=== PATIENT | male | born 1940 | race Caucasian/White ===

== ENCOUNTER 2016-07-21 17:32 | Emergency (ER) | payer MEDICARE ==
[2016-07-21 17:54] VITALS: BP 121/62; PULSE 78; RESP 18; TEMP 98.8
--- NOTE | 2016-07-21 18:36 | ED ---
Extremity Problem HPI - General Chief complaint: Extremity Problem,Nontraumatic Stated complaint: POSS BLOOD CLOT RT FOOT Source: patient Mode of arrival: wheelchair Limitations: no limitations - History of Present Illness Initial comments: Patient is a pleasant 75-year-old male who presents for evaluation for right ankle pain. Past medical history as below. Patient has a known history of gout. Stated Friday evening/Friday morning he developed pain to the medial aspect of his right ankle. He took 2 doses of colchicine with no relief. Because he did not get better he came here for evaluation. Walking on it hurts it more. He has no history of trauma to the ankle. Denies any twisting motion to the right foot. No history of blood clots. No history of cellulitis. Did have a right knee replacement in April 2016 but is done well since the operation. States that he has a known history of gout but stated that after 1- 2 doses of colchicine his pain typically resolves. He denies any other systemic signs of illness. Denies fever, chills, headache, changes in vision, URI symptoms, shortness of breath, cough, chest pain, nausea, vomiting, diarrhea , pain or burning with urination. - Related Data Home Medications Medication Instructions Recorded Confirmed Aspirin EC [Ecotrin Low Dose] 81 mg PO DAILY 07/21/16 07/21/16 Calcium Carbonate/Vitamin D3 1 tab PO DAILY 07/21/16 07/21/16 [Calcium 500-Vit D3 600 Tablet] Colchicine [Colcrys] 0.6 mg PO DAILY PRN 07/21/16 07/21/16 Cyanocobalamin (Vitamin B-12) 1,000 mcg PO DAILY 07/21/16 07/21/16 [Vitamin B-12] FLUoxetine HCL [PROzac] 40 mg PO DAILY 07/21/16 07/21/16 Gabapentin 600 mg PO TID 07/21/16 07/21/16 Lactulose 10 gm PO BID PRN 07/21/16 07/21/16 Lansoprazole [Prevacid] 30 mg PO DAILY PRN 07/21/16 07/21/16 Levofloxacin [Levaquin] 750 mg PO DAILY 07/21/16 07/21/16 Levothyroxine Sodium [Synthroid] 112 mcg PO DAILY 07/21/16 07/21/16 Maxvision 1 tab PO DAILY 07/21/16 07/21/16 Metaxalone [Skelaxin] 400 - 800 mg PO TID PRN 07/21/16 07/21/16 Methylphenidate HCl [Ritalin] 20 mg PO BID@0800,1200 07/21/16 07/21/16 Multivit-Min/FA/Lycopene/Lut 1 tab PO DAILY 07/21/16 07/21/16 [Centrum Silver Tablet] Nortriptyline [Pamelor] 25 mg PO HS 07/21/16 07/21/16 Simvastatin [Zocor] 10 mg PO HS 07/21/16 07/21/16 Visaril 0.25mg 0.5 mg PO QID 07/21/16 07/21/16 amLODIPine BESYLATE/BENAZEPRIL 1 cap PO DAILY 07/21/16 07/21/16 [Lotrel 10-40 mg Capsule] clonazePAM [KlonoPIN] 1 mg PO DAILY@1800 07/21/16 07/21/16 clonazePAM [KlonoPIN] 1 mg PO TID 07/21/16 07/21/16 hydrOXYzine PAMOATE [Vistaril] 50 mg PO QID PRN 07/21/16 07/21/16 rOPINIRole HCL [Requip] 1 mg PO QID PRN 07/21/16 07/21/16 Allergies Allergy/AdvReac Type Severity Reaction Status Date / Time No Known Allergies Allergy Unverified 07/21/16 18:07 Review of Systems ROS Statement: Those systems with pertinent positive or pertinent negative responses have been documented in the HPI. ROS Other: All systems not noted in ROS Statement are negative. Past Medical History Past Medical History: Hyperlipidemia, Hypertension, Thyroid Disorder Additional Past Medical History / Comment(s): restless leg, IBS, gout History of Any Multi-Drug Resistant Organisms: None Reported Past Surgical History: Hernia Repair, Joint Replacement Past Psychological History: Anxiety Smoking Status: Never smoker Past Alcohol Use History: None Reported Past Drug Use History: None Reported General Exam Limitations: no limitations General appearance: alert, in no apparent distress, other (No acute distress) Head exam: Present: atraumatic, normocephalic, normal inspection Eye exam: Present: normal appearance, PERRL, EOMI. Absent: scleral icterus, conjunctival injection, periorbital swelling ENT exam: Present: normal exam, mucous membranes moist Neck exam: Present: normal inspection. Absent: tenderness, meningismus, lymphadenopathy Respiratory exam: Present: normal lung sounds bilaterally. Absent: respiratory distress, wheezes, rales, rhonchi, stridor Cardiovascular Exam: Present: regular rate, normal rhythm, normal heart sounds. Absent: systolic murmur, diastolic murmur, rubs, gallop, clicks GI/Abdominal exam: Present: soft, normal bowel sounds. Absent: distended, tenderness, guarding, rebound, rigid Extremities exam: Present: full ROM, normal capillary refill, joint swelling, other (There is a mild degree of swelling to the medial aspect of the right ankle. There is an area that is firm to the touch and warm to the touch. Full range of motion of the right ankle. Good midfoot rotation. Distal pulses intact. There is some mild degree of pain with palpation of the distal gastroc. ). Absent: tenderness, pedal edema, calf tenderness Back exam: Present: normal inspection Neurological exam: Present: alert, oriented X3, CN II-XII intact Psychiatric exam: Present: normal affect, normal mood Skin exam: Present: warm, dry, intact, normal color. Absent: rash Course Vital Signs 07/21/16 17:47 Temperature 98.8 F Pulse Rate 78 Respiratory 18 Rate Blood Pressure 121/62 O2 Sat by Pulse 95 Oximetry Medical Decision Making - Medical Decision Making Patient is a pleasant 75-year-old male presents for evaluation for redness and swelling to the medial aspect of his right ankle. He does have some tenderness to palpation of the posterior right calf. We'll order plain film of the right ankle and ultrasound of the right lower extremity. 184: Venous duplex negative for acute DVT. 193: Reviewed plain films of the right ankle. No acute fracture dislocation. There does appear to be some inflammatory changes to the medial aspect of his right ankle. Reevaluated the patient. His pain is a little bit improved. Believe his symptoms are most consistent with gout at this time. He has a known history of it. He has mono joint involvement. Encourage close follow-up with his primary care physician. May need repeat venous duplex of his right lower extremity for swelling persist to help rule out DVT. Patient voiced understanding. He will call his primary care physician tomorrow. Will continue to take colchicine as prescribed. Can also take a couple tabs of NSAIDs in the short-term for his pain. He has taken Motrin and tolerated in the past. Discussed signs and symptoms on when to return to the emergency department for further evaluation. He is comfortable discharge home and will follow-up. Disposition Clinical Impression: Gout attack Disposition: HOME SELF-CARE Condition: Fair Instructions: Gout (ED) Referrals: Jonathan Mcneal MD [Primary Care Provider] - 1-2 days
--- NOTE | 2016-07-21 19:05 | XR ---
EXAMINATION TYPE: XR ankle complete RT DATE OF EXAM: 07/21/2016 6:38 PM CLINICAL HISTORY: Pain, redness, and swelling. History of gout TECHNIQUE: Frontal, lateral and oblique images of the right ankle are obtained. COMPARISON: None. FINDINGS: There is no acute fracture/dislocation evident in the right ankle. The ankle mortise appe ars within normal limits. Moderate diffuse subcutaneous edema is present with more focal soft tissue swelling medially and posteriorly. Some calcifications near distal Achilles tendon and proximal plant ar fascia are present. IMPRESSION: There is no acute fracture or dislocation in the right ankle.
--- NOTE | 2016-07-21 19:16 | US ---
EXAMINATION TYPE: US venous doppler duplex LE RT DATE OF EXAM: 07/21/2016 6:49 PM COMPARISON: NONE CLINICAL HISTORY: Pain. right ankle pain, swelling, and redness SIDE PERFORMED: Right VESSELS IMAGED: External Iliac Vein (EIV) Common Femoral Vein Deep Femoral Vein Greater Saphenous Vein * Femoral Vein Popliteal Vein Proximal Calf Veins (* superficial vessels) TECHNOLOGIST IMPRESSION: wnl Right Leg: Negative for DVT Satisfactory color flow, phasicity, and compressibility is seen in the right lower extremity at the a yunior levels. IMPRESSION: No ultrasound evidence for acute DVT in the right lower extremity.
== END 2016-07-21 19:59 | disposition home or self-care (01) ==
LOC: EC 17:32
DX: M10.9 Gout, unspecified (principal); E78.5 Hyperlipidemia, unspecified; I10 Essential (primary) hypertension; E07.9 Disorder of thyroid, unspecified; K58.9 Irritable bowel syndrome, unspecified; G25.81 Restless legs syndrome; F41.9 Anxiety disorder, unspecified; Z79.899 Other long term (current) drug therapy; Z79.82 Long term (current) use of aspirin; Z96.651 Presence of right artificial knee joint
CPT/HCPCS: 99284

== ENCOUNTER 2019-07-10 13:41 | Emergency (ER) | payer MEDICARE ==
[2019-07-10 13:52] VITALS: BP 115/55; PULSE 83; RESP 20; TEMP 97.9
--- NOTE | 2019-07-10 15:15 | XR ---
EXAMINATION TYPE: XR tibia fibula LT DATE OF EXAM: 07/10/2019 COMPARISON: NONE HISTORY: Leg pain TECHNIQUE: 4 views FINDINGS: There is left knee prosthesis. There is oblique fracture distal shaft of the fibula. Ankle mortise is not widened. The tibia appears intact. IMPRESSION: Acute nondisplaced fracture distal fibula.
--- NOTE | 2019-07-10 15:16 | XR ---
EXAMINATION TYPE: XR foot complete LT DATE OF EXAM: 07/10/2019 COMPARISON: NONE HISTORY: Foot pain TECHNIQUE: 3 views FINDINGS: Metatarsals appear intact. There is minor spurring at the MP joints. There is spurring of t he anterior malleolus at the ankle. There is a small plantar and Achilles calcaneal spur. There is mild soft tissue swelling of the forefoot. IMPRESSION: No foot fracture seen. Mild soft tissue swelling. Degenerative mild changes. Distal fibul a and nondisplaced fracture noted.
--- NOTE | 2019-07-10 15:18 | XR ---
EXAMINATION TYPE: XR ankle complete LT DATE OF EXAM: 07/10/2019 COMPARISON: NONE HISTORY: Pain TECHNIQUE: 3 views FINDINGS: There is oblique fracture distal shaft of the fibula. Ankle mortise is anatomic. There is m ild soft tissue swelling over the lateral malleolus. There is some spurring of the anterior and poste rior malleolus. Subtalar joint is intact. IMPRESSION: Acute oblique fracture distal shaft of the fibula without significant displacement.
--- NOTE | 2019-07-10 15:23 | ED ---
Lower Extremity Injury HPI - General Source: patient Mode of arrival: wheelchair Limitations: no limitations <Shayy Hernandez - Last Filed: 07/10/19 15:57> <Ssuan Mcgrathah Cortez - Last Filed: 07/12/19 00:24> - General Chief Complaint: Extremity Injury, Lower Stated Complaint: Ankle injury Time Seen by Provider: 07/10/19 13:54 - History of Present Illness Initial Comments: Patient is a 78-year-old male presenting to the emergency Department with complaints of left ankle pain after falling on it 2 days ago. Patient states he slipped on the last step and rolled his left ankle. Patient states he thought it was just a sprain so he's been trying to ice it and elevate it. He is able to give few steps on it while using his cane. Patient states he woke up this morning and noticed a few blisters on his ankle and was concerned. He denies any previous surgeries on this ankle. He denies any other complaints from falling other than a simple abrasion on his right hand. He denies hitting his head, no LOC. He has no other complaints at this time. Upon arrival to the ER, his vital signs are stable. (Shayy Hernandez) - Related Data Home Medications Medication Instructions Recorded Confirmed Aspirin EC [Ecotrin Low Dose] 81 mg PO DAILY 07/21/16 04/14/17 Colchicine [Colcrys] 0.6 mg PO DAILY PRN 07/21/16 04/14/17 Cyanocobalamin (Vitamin B-12) 1,000 mcg PO DAILY 07/21/16 04/14/17 [Vitamin B-12] FLUoxetine HCL [PROzac] 40 mg PO DAILY 07/21/16 04/14/17 Gabapentin 600 mg PO TID 07/21/16 04/14/17 Lactulose 10 gm PO BID PRN 07/21/16 04/14/17 Lansoprazole [Prevacid] 30 mg PO DAILY PRN 07/21/16 04/14/17 Levothyroxine Sodium [Synthroid] 112 mcg PO DAILY 07/21/16 04/14/17 Maxvision 1 tab PO DAILY 07/21/16 04/14/17 Metaxalone [Skelaxin] 400 - 800 mg PO TID PRN 07/21/16 04/14/17 Methylphenidate HCl [Ritalin] 20 mg PO BID 07/21/16 04/14/17 Multivit-Min/FA/Lycopen/Lutein 1 tab PO DAILY 07/21/16 04/14/17 [Centrum Silver Tablet] Nortriptyline [Pamelor] 25 mg PO HS 07/21/16 04/14/17 Simvastatin [Zocor] 10 mg PO HS 07/21/16 04/14/17 amLODIPine BESYLATE/BENAZEPRIL 1 cap PO DAILY 07/21/16 04/14/17 [Lotrel 10-40 mg Capsule] clonazePAM [KlonoPIN] 1 mg PO QID 07/21/16 04/14/17 hydrOXYzine PAMOATE [Vistaril] 50 mg PO QID PRN 07/21/16 04/14/17 rOPINIRole HCL [Requip] 1 mg PO QID PRN 07/21/16 04/14/17 Calcium 1000mg 1,000 mg PO DAILY 04/14/17 04/14/17 HYDROcodone/APAP 10-325MG [Rosamond 1 tab PO Q4HR PRN 04/14/17 04/14/17 10-325] Warfarin Sodium [Coumadin] 4 mg PO DAILY 04/14/17 04/14/17 Previous Rx's Medication Instructions Recorded Cyclobenzaprine [Flexeril] 10 mg PO TID PRN #20 tab 04/14/17 Hydrocodone/Acetaminophen [Rosamond 1 tab PO Q6HR PRN 3 Days #10 tab 07/10/19 5-325] Allergies Allergy/AdvReac Type Severity Reaction Status Date / Time No Known Allergies Allergy Verified 07/10/19 13:52 Review of Systems ROS Other: All systems not noted in ROS Statement are negative. <Shayy Hernandez - Last Filed: 07/10/19 15:57> ROS Other: All systems not noted in ROS Statement are negative. <Latrice Mcgrath - Last Filed: 07/12/19 00:24> ROS Statement: Those systems with pertinent positive or pertinent negative responses have been documented in the HPI. Past Medical History Past Medical History: Hyperlipidemia, Hypertension, Thyroid Disorder Additional Past Medical History / Comment(s): restless leg, IBS, gout History of Any Multi-Drug Resistant Organisms: None Reported Past Surgical History: Hernia Repair, Joint Replacement, Orthopedic Surgery Additional Past Surgical History / Comment(s): left knee Past Psychological History: Anxiety Smoking Status: Never smoker Past Alcohol Use History: None Reported Past Drug Use History: None Reported <Shayy Hernandez - Last Filed: 07/10/19 15:57> General Exam Limitations: no limitations <Shayy Hernandez - Last Filed: 07/10/19 15:57> - General Exam Comments Initial Comments: GENERAL: Well-appearing, well-nourished and in no acute distress. HEAD: Atraumatic, normocephalic. EYES: Pupils equal round and reactive to light, extraocular movements intact, sclera anicteric, conjunctiva are normal. ENT: Moist mucous membranes. NECK: Normal range of motion, supple without lymphadenopathy or JVD. LUNGS: Breath sounds clear to auscultation bilaterally and equal. No wheezes rales or rhonchi. HEART: Regular rate and rhythm without murmurs, rubs or gallops. ABDOMEN: Soft, nontender, normoactive bowel sounds. No guarding, no rebound. No masses appreciated. : Deferred EXTREMITIES: Patient has pain with palpation of the left medial and lateral ankle, greater over the lateral malleolus. Patient has no pain into the foot. He does have decreased range of motion of the ankle joint. Full left knee range of motion. Sensation is equal and bilateral. He is neurovascular intact. Patient does have multiple swelling blisters over his left ankle. NEUROLOGICAL: Normal speech, normal gait. PSYCH: Normal mood, normal affect. SKIN: Warm, Dry, normal turgor. (Shayy Hernandez) Course Vital Signs 07/10/19 13:50 Temperature 97.9 F Pulse Rate 83 Respiratory 20 Rate Blood Pressure 115/55 O2 Sat by Pulse 96 Oximetry Procedures - Orthopedic Splinting/Casting Injury #1 Side: left Lower Extremity Injury Location: short leg, ankle Lower Extremity Immobilizer: Armani wrap, synthetic pre-padded splint <Shayy Hernandez - Last Filed: 07/10/19 15:57> Medical Decision Making <Shayy Hernandez - Last Filed: 07/10/19 15:57> <Latrice Mcgrath - Last Filed: 07/12/19 00:24> - Medical Decision Making Patient is 78-year-old male presenting with left ankle pain after falling 2 days ago. He woke up this morning with blisters around his left ankle as well. He is neurovascular intact. X-rays of the left ankle, left foot, left tib-fib reveal an acute nondisplaced fracture of the distal fibula. Patient will be placed in a splint and will follow up with orthopedics. He will continue with ice, elevation for swelling. He is requesting pain medication. Patient be given short course of Rosamond. He is stable for discharge at this time. He is in agreement with this plan of care. Return parameters were discussed with the patient he verbalizes understanding. Case discussed with Dr. Mcgrath. (Shayy Hernandez) I was available for consultation in the emergency department. The history and physical exam were done by the midlevel provider. I was consulted for this patients care. I reviewed the case with the midlevel provider and based on th eir presentation of the patient, I agree with the assessment, medical decision making and plan of care as documented. Chart was dictated using [employer] dictation software. Attempts were made to correct any dictation errors however some typographical errors may persist. (Latrice Mcgrath) Disposition Is patient prescribed a controlled substance at d/c from ED?: Yes When asked, does pt state using other controlled substances?: No If prescribed controlled substance>3 days was MAPS reviewed?: Prescribed <3 Days If opioid is for acute pain is fill amount 7 days or less?: Yes If Rx opioid, was Start Talking consent form obtained?: Yes <Shayy Hernandez - Last Filed: 07/10/19 15:57> <Latrice Mcgrath - Last Filed: 07/12/19 00:24> Clinical Impression: Fracture of fibula, distal, left, closed Disposition: HOME SELF-CARE Condition: Stable Instructions (If sedation given, give patient instructions): Ankle Fracture (ED) Additional Instructions: Please return to the Emergency Department if symptoms worsen or any other concerns. Keep splint in place. Follow-up with orthopedics on Friday as discussed. Continue to ice and elevate the ankle. Prescriptions: Hydrocodone/Acetaminophen [Rosamond 5-325] 1 tab PO Q6HR PRN 3 Days #10 tab PRN Reason: Pain Referrals: Jonathan Mcneal MD [Primary Care Provider] - 1-2 days Ajay Diaz MD [STAFF PHYSICIAN] - 1-2 days
== END 2019-07-10 16:03 | disposition home or self-care (01) ==
LOC: EC 13:41
DX: S82.832A Other fracture of upper and lower end of left fibula, initial encounter for closed fracture (principal); S60.511A Abrasion of right hand, initial encounter; E78.5 Hyperlipidemia, unspecified; I10 Essential (primary) hypertension; E07.9 Disorder of thyroid, unspecified; F41.9 Anxiety disorder, unspecified; M10.9 Gout, unspecified; Z79.01 Long term (current) use of anticoagulants; Z79.82 Long term (current) use of aspirin; Z79.890 Hormone replacement therapy; Z79.899 Other long term (current) drug therapy; Z96.652 Presence of left artificial knee joint; W10.9XXA Fall (on) (from) unspecified stairs and steps, initial encounter; X50.1XXA Overexertion from prolonged static or awkward postures, initial encounter; Y92.89 Other specified places as the place of occurrence of the external cause
CPT/HCPCS: 29515; 99283